=== PATIENT | female | born 1980 | race American Indian/Alaskan Native ===

== ENCOUNTER 2016-09-13 17:10 | Emergency (ER) | payer MEDICAID, MEDICARE ==
--- NOTE | 2016-09-13 18:12 | Emergency Department Report ---
Chief Complaint: Vaginal Bleeding Stated Complaint: /SPOTTING Time Seen by Provider: 09/13/16 18:05 - HPI History of Present Illness: Patient is a 36-year-old female who presents to the complaining of vaginal spotting and pelvic cramping times today. Patient states she took a test on Saturday and was positive at home. Patient states today she started to see some pink spotting pennies and low pelvic cramping. Patient states she is set up, and in get it checked out. Patient states cramping is resolved at the moment. Patient denies fevers/chills/nausea/vomiting/abdominal pain/shortness of breath /dizziness - ROS Review of Systems: As noted in HPI - Exam Vital Signs: Vital Signs 09/13/16 17:50 Temperature 98.7 F Pulse Rate 92 H Respiratory 16 Rate Blood Pressure 118/87 O2 Sat by Pulse 98 Oximetry Physical Exam: AGENERAL: Alert and oriented x3, no apparent distress, Normal Gait, atraumatic. LUNGS: Symetrical with respiration, No wheezing, no rales or crackles, CTAB. HEART: S1, S2 present, regular rate and rhythm without murmur, no rubs, no gallops. ABDOMEN: No organomegaly was noted,Positive bowel sounds, soft, and non- distended. . Nontender to palpation on all Quadrants, NO CVA tenderness. MSE screening note: Focused history and physical exam performed. Due to findings the following was ordered: ED Medical Decision Making - Medical Decision Making Protocol ordered. If normal ultrasound and lab results patient can be seen in fast track. ED Disposition for MSE Condition: Stable
[2016-09-13 18:38] LABS: Bilirubin,Urine NEG (Negative); Blood,Urine MOD (Negative); Ketones,Urine NEG (Negative); Leukocyte Esterase,Urine NEG (Negative); Mucus,Urine FEW /HPF; Nitrite,Urine NEG (Negative); Protein,Urine <15 mg/dL mg/dL (Negative); Urobilinogen,Urine < 2.0 mg/dL (<2.0); WBC,Urine < 1.0 /HPF (0.0-6.0)
[2016-09-13 18:48] LABS: Eosinophils % (Auto) 1.1 % (0.0-4.3); Hematocrit 40.2 % (30.3-42.9); Hemoglobin 13.4 gm/dl (10.1-14.3); Mean Corpuscular HGB Conc 33 % (30-34); Mean Corpuscular Hemoglobin 27 pg (28-32); Mean Corpuscular Volume 82 fl (79-97); Platelet Count 221 K/mm3 (140-440); Red Blood Count 4.93 M/mm3 (3.65-5.03); Red Cell Distribution Width 14.4 % (13.2-15.2); White Blood Count 7.2 K/mm3 (4.5-11.0)
--- NOTE | 2016-09-13 20:14 | Ultrasound Report ---
FINAL REPORT EXAM: US OB \T\lt; = 14 WEEKS FETUS HISTORY: spotting/cramping TECHNIQUE: Transabdominal and transvaginal sonography of the pelvis. PRIORS: None for this . FINDINGS: The uterus measures 12.4 x 5.6 x 8.3 cm, has heterogeneous echogenicity and multiple, small and hypoechoic fibroids. The endometrial stripe measures 22 mm in AP dimension. No intrauterine fluid collection or IUP identified. The right ovary measures 2.9 x 2.4 x 3.0 cm and is grossly unremarkable. The left ovary is not confidently identified by the train control technician. No adnexal masses, ring-like structures or significant free peritoneal fluid. IMPRESSION: 1. No IUP identified. Possibilities include early gestation, early failure, or ectopic . Correlation with serial beta-hCG levels and follow-up ultrasound may help in further evaluation. 2. Leiomyomatous change in the uterus. 3. Nonvisualization of the left ovary.
--- NOTE | 2016-09-13 20:15 | Ultrasound Report ---
FINAL REPORT EXAM: US OB TRANSVAGINAL HISTORY: spotting/cramping TECHNIQUE: Transabdominal and transvaginal sonography of the pelvis. PRIORS: None from this . FINDINGS: The uterus measures 12.4 x 5.6 x 8.3 cm, has heterogeneous echogenicity and multiple, small and hypoechoic fibroids. The endometrial stripe measures 22 mm in AP dimension. No intrauterine fluid collection or IUP identified. The right ovary measures 2.9 x 2.4 x 3.0 cm and is grossly unremarkable. The left ovary is not confidently identified by the soil field technician. No adnexal masses, ring-like structures or significant free peritoneal fluid. IMPRESSION: 1. No IUP identified. Possibilities include early gestation, early failure, or ectopic . Correlation with serial beta-hCG levels and follow-up ultrasound may help in further evaluation. 2. Leiomyomatous change in the uterus. 3. Nonvisualization of the left ovary.
--- NOTE | 2016-09-14 00:44 | Emergency Department Report ---
ED Female HPI - General Chief complaint: Vaginal Bleeding Stated complaint: /SPOTTING Time Seen by Provider: 09/13/16 18:05 Source: patient Mode of arrival: Ambulatory Limitations: No Limitations - History of Present Illness Initial comments: 36-year-old female presents to the hospital complaining of of vaginal bleeding. Patient is positive for recent 3 days LMP 08/13/2016. Patient had a positive test earlier in the week and started to developed spotting today. No pain reported. This is patient's third . She has a teenager and had a miscarriage (twins at 4 months) last year. She denies history of ectopic or abortions. She does not have a [employer] doctor - Related Data Previous Rx's Medication Instructions Recorded Last Taken Type Pnv95/Ferrous Fumarate/FA 1 each PO DAILY #30 tablet 09/14/16 Unknown Rx [Prenavite Tablet] metroNIDAZOLE [Flagyl] 500 mg PO Q12HR #14 tab 09/14/16 Unknown Rx Allergies Allergy/AdvReac Type Severity Reaction Status Date / Time aspirin Allergy Angioedema Verified 09/13/16 17:54 orange juice Allergy Angioedema Verified 09/13/16 17:54 ED Review of Systems ROS: Stated complaint: /SPOTTING Other details as noted in HPI Comment: All other systems reviewed and negative Other: Constitutional: No fevers chills Eyes: No eye pain visual changes ENT: No ear pain or throat pain Neck: Denies pain Respiratory: Denies cough wheezing shortness of breath Cardiovascular: Denies chest pain, palpitations, syncope GI: Denies abdominal pain, nausea, vomiting, diarrhea : Denies dysuria Musculoskeletal: Denies back pain Skin: Denies rash, lesions, erythema Neurologic: Denies headache, numbness, weakness Psychiatric: Denies suicidal ideation, hallucinations ED Past Medical Hx - Past Medical History Hx Hypertension: No Hx Liver Disease: Yes (liver transplant x 3 1982) Hx Renal Disease: (kidney stones) Hx Seizures: No Hx Asthma: No Additional medical history: liver transplant 1982 - Surgical History Additional Surgical History: csection. liver transplant - Social History Smoking Status: Never Smoker Substance Use Type: None - Medications Home Medications: Home Medications Medication Instructions Recorded Confirmed Last Taken Type Pnv95/Ferrous Fumarate/FA 1 each PO DAILY #30 tablet 09/14/16 Unknown Rx [Prenavite Tablet] metroNIDAZOLE [Flagyl] 500 mg PO Q12HR #14 tab 09/14/16 Unknown Rx ED Physical Exam - General Limitations: No Limitations - Other Other exam information: General: No limitations, patient is alert in no acute distress Head exam: Atraumatic, normocephalic Eyes exam: Normal appearance ENT: Moist mucous membrane, normal oropharynx Neck exam: Normal inspection, full range of motion Respiratory exam: Clear to auscultation bilateral, no wheezes, rales, crackles Cardiovascular: Normal rate and rhythm, normal heart sounds Abdomen: Soft, nondistended, and nontender, with normal bowel sounds, no rebound, or guarding : Scant blood in the vault, Cervix closed, no CMT or adnexal tenderness Extremity: Full range of motion normal inspection no deformity Back: Normal Inspection, full range of motion, no tenderness Neurologic: Alert, oriented x3, cranial nerves intact, no motor or sensory deficit Psychiatric: normal affect, normal mood Skin: Warm, dry, intact ED Course Vital Signs 09/13/16 17:50 Temperature 98.7 F Pulse Rate 92 H Respiratory 16 Rate Blood Pressure 118/87 O2 Sat by Pulse 98 Oximetry - Reevaluation(s) Reevaluation #1: 09/14/16 00:42 Patient stable in the ED - Consultations Consultation #1: 09/14/16 00:[address] Blanc materials and corrosion engineer physician for [employer]. Agrees with plan to have patient return to the ER with 2 days for repeat Quant is no IUP identified on ultrasound ED Medical Decision Making - Lab Data Result diagrams: 09/13/16 18:26 Lab Results 09/13/16 09/13/16 09/13/16 Range/Units 18:10 18:26 18:26 WBC 7.2 (4.5-11.0) K/mm3 RBC 4.93 (3.65-5.03) M/mm3 Hgb 13.4 (10.1-14.3) gm/dl Hct 40.2 (30.3-42.9) % MCV 82 (79-97) fl MCH 27 L (28-32) pg MCHC 33 (30-34) % RDW 14.4 (13.2-15.2) % Plt Count 221 (140-440) K/mm3 Lymph % (Auto) 25.1 (13.4-35.0) % [place] % (Auto) 6.0 (0.0-7.3) % Eos % (Auto) 1.1 (0.0-4.3) % Baso % (Auto) 1.0 (0.0-1.8) % Lymph # 1.8 (1.2-5.4) K/mm3 [place] # 0.4 (0.0-0.8) K/mm3 Eos # 0.1 (0.0-0.4) K/mm3 Baso # 0.1 (0.0-0.1) K/mm3 Seg Neutrophils % 66.8 (40.0-70.0) % Seg Neutrophils # 4.8 (1.8-7.7) K/mm3 HCG, Quant 2354 H (0-4) mIU/mL Urine Color Straw (Yellow) Urine Turbidity Clear (Clear) Urine pH 6.0 (5.0-7.0) Ur Specific [place] 1.005 (1.003-1.030) Urine Protein <15 mg/dl (Negative) mg/dL Urine Glucose (UA) Neg (Negative) mg/dL Urine Ketones Neg (Negative) mg/dL Urine Blood Mod (Negative) Urine Nitrite Neg (Negative) Urine Bilirubin Neg (Negative) Urine Urobilinogen < 2.0 (<2.0) mg/dL Ur Leukocyte Esterase Neg (Negative) Urine WBC (Auto) < 1.0 (0.0-6.0) /HPF Urine RBC (Auto) 0.0 (0.0-6.0) /HPF U Epithel Cells (Auto) 2.0 (0-13.0) /HPF Urine Mucus Few /HPF Blood Type Antibody Screen 09/13/16 Range/Units 18:35 WBC (4.5-11.0) K/mm3 RBC (3.65-5.03) M/mm3 Hgb (10.1-14.3) gm/dl Hct (30.3-42.9) % MCV (79-97) fl MCH (28-32) pg MCHC (30-34) % RDW (13.2-15.2) % Plt Count (140-440) K/mm3 Lymph % (Auto) (13.4-35.0) % [place] % (Auto) (0.0-7.3) % Eos % (Auto) (0.0-4.3) % Baso % (Auto) (0.0-1.8) % Lymph # (1.2-5.4) K/mm3 [place] # (0.0-0.8) K/mm3 Eos # (0.0-0.4) K/mm3 Baso # (0.0-0.1) K/mm3 Seg Neutrophils % (40.0-70.0) % Seg Neutrophils # (1.8-7.7) K/mm3 HCG, Quant (0-4) mIU/mL Urine Color (Yellow) Urine Turbidity (Clear) Urine pH (5.0-7.0) Ur Specific [place] (1.003-1.030) Urine Protein (Negative) mg/dL Urine Glucose (UA) (Negative) mg/dL Urine Ketones (Negative) mg/dL Urine Blood (Negative) Urine Nitrite (Negative) Urine Bilirubin (Negative) Urine Urobilinogen (<2.0) mg/dL Ur Leukocyte Esterase (Negative) Urine WBC (Auto) (0.0-6.0) /HPF Urine RBC (Auto) (0.0-6.0) /HPF U Epithel Cells (Auto) (0-13.0) /HPF Urine Mucus /HPF Blood Type O POSITIVE Antibody Screen Negative - Medical Decision Making Patient a HCG quantitative in the 1999 however, no IUP is identified on ultrasound. Patient may need to return in 2 days for repeat hCG testing. Case has been discussed with [employer]. Patient's blood type is O positive and she does not require RhoGAM. She is stable for follow-up at this time. Patient will be treated for bacterial vaginosis. - Differential Diagnosis ectopic , threatened miscarriage, miscarriage Critical Care Time: No Critical care attestation.: If time is entered above; I have spent that time in minutes in the direct care of this critically ill patient, excluding procedure time. ED Disposition Clinical Impression: Threatened miscarriage, Bacterial vaginosis Disposition: DISCHARGED TO HOME OR SELFCARE Is pt being admited?: No Does the pt Need Aspirin: No Condition: Stable Instructions: Threatened Miscarriage (ED), Bacterial Vaginosis (ED) Additional Instructions: Return in 2 days for repeat hCG quantitative testing since [employer] office will be closed at this time. Please return if symptoms worsen prior to your repeat visit recommendation. Your baby hormone beta hCG is 2354 today. Your gonorrhea and chlamydia tests are pending and take approximately 3-4 days result. You may obtain results in medical records with a photo ID. You may also obtain results through the follow-up doctor office via medical record request. Prescriptions: metroNIDAZOLE [Flagyl] 500 mg PO Q12HR #14 tab Pnv95/Ferrous Fumarate/FA [Prenavite Tablet] 1 each PO DAILY #30 tablet Referrals: JAYMIE ANDERS [Other] - 3-5 Days DANDRE BLANC MD [Staff Physician] - 2-3 Days Forms: STI Treatment and Prevention Time of Disposition: 02:05
[2016-09-14 02:27] VITALS: BP 121/85
== END 2016-09-14 02:25 | disposition home or self-care (01) ==
LOC: ED 17:10
DX: O20.0 Threatened abortion (principal); Z3A.00 Weeks of gestation of pregnancy not specified
CPT/HCPCS: 36415; 76801; 76817; 81001; 84702; 85025; 86850; 86900; 86901; 87210; 87591; 99284

== ENCOUNTER 2016-09-27 19:18 | Emergency (ER) | payer MEDICAID ==
[2016-09-27 20:57] LABS: Basophils % (Auto) 0.5 % (0.0-1.8); Eosinophils % (Auto) 1.5 % (0.0-4.3); Hematocrit 40.2 % (30.3-42.9); Hemoglobin 13.3 gm/dl (10.1-14.3); Mean Corpuscular HGB Conc 33 % (30-34); Mean Corpuscular Hemoglobin 28 pg (28-32); Mean Corpuscular Volume 84 fl (79-97); Platelet Count 190 K/mm3 (140-440); Red Blood Count 4.79 M/mm3 (3.65-5.03); Red Cell Distribution Width 14.4 % (13.2-15.2); White Blood Count 6.9 K/mm3 (4.5-11.0)
--- NOTE | 2016-09-27 21:43 | Emergency Department Report ---
ED HPI - General Chief complaint: Vaginal Bleeding Stated complaint: VAG BLEEDING Time Seen by Provider: 09/27/16 21:19 Source: patient Mode of arrival: Stretcher Limitations: No Limitations - History of Present Illness Initial comments: 36-year-old female and history of miscarriage last year presents to the hospital with complaints of vaginal bleeding and started at 7 PM. Patient noticed the blood on her tissue after urination. She has not required any pads and reports that the bleeding has improved it is mild spotting at this time. No pain reported. Patient was seen by me on September 14 for pelvic pain or vaginal bleeding. No IUP identified that time with a hCG quantitative in the . Patient was instructed to return in 2 days for repeat laboratory testing however , she has not followed up since her last ER visit. LMP 08/13/2016 therefore she is 7 wks 0 days by dates. - Related Data Previous Rx's Medication Instructions Recorded Last Taken Type Vit W-Ca,Fe,FA(<1 mg) 1 each PO DAILY #30 tablet 09/28/16 Unknown Rx [ Vitamins] Allergies Allergy/AdvReac Type Severity Reaction Status Date / Time aspirin Allergy Angioedema Verified 09/13/16 17:54 orange juice Allergy Angioedema Verified 09/13/16 17:54 ED Review of Systems ROS: Stated complaint: VAG BLEEDING Other details as noted in HPI Comment: All other systems reviewed and negative Other: Constitutional: No fevers chills Eyes: No eye pain visual changes or discharge ENT: No ear pain or throat pain Neck: Denies pain Respiratory: Denies cough wheezing shortness of breath Cardiovascular: Denies chest pain, palpitations, syncope GI: Denies abdominal pain : Denies dysuria Musculoskeletal: Denies back pain Skin: Denies rash, lesions, erythema Neurologic: Denies headache, numbness, weakness ED Past Medical Hx - Past Medical History Hx Hypertension: No Hx Liver Disease: Yes (liver transplant x 3 1982) Hx Renal Disease: (kidney stones) Hx Seizures: No Hx Asthma: No Additional medical history: liver transplant 1982 - Surgical History Additional Surgical History: csection. liver transplant - Social History Smoking Status: Never Smoker Substance Use Type: None - Medications Home Medications: Home Medications Medication Instructions Recorded Confirmed Last Taken Type Vit W-Ca,Fe,FA(<1 mg) 1 each PO DAILY #30 tablet 09/28/16 Unknown Rx [ Vitamins] ED Physical Exam - General Limitations: No Limitations - Other Other exam information: General: No limitations, patient is alert in no acute distress Head exam: Atraumatic, normocephalic Eyes exam: Normal appearance ENT: Moist mucous membrane, normal oropharynx Neck exam: Normal inspection, full range of motion Respiratory exam: Clear to auscultation bilateral, no wheezes, rales, crackles Cardiovascular: Normal rate and rhythm, normal heart sounds Abdomen: Soft, nondistended, and nontender, with normal bowel sounds, no rebound, or guarding Extremity: Full range of motion normal inspection no deformity Back: Normal Inspection, full range of motion, no tenderness Neurologic: Alert, oriented x3, cranial nerves intact, no motor or sensory deficit Psychiatric: normal affect, normal mood Skin: Warm, dry, intact ED Course Vital Signs 09/27/16 09/27/16 09/27/16 20:11 21:48 22:08 Temperature 98.2 F 98.6 F Pulse Rate 90 99 H Respiratory 18 20 Rate Blood Pressure 116/74 96/51 Blood Pressure 116/74 [Left] O2 Sat by Pulse 100 99 Oximetry ED Medical Decision Making - Lab Data Result diagrams: 09/27/16 20:40 Lab Results 09/27/16 09/27/16 09/27/16 Range/Units 20:40 20:40 20:40 WBC 6.9 (4.5-11.0) K/mm3 RBC 4.79 (3.65-5.03) M/mm3 Hgb 13.3 (10.1-14.3) gm/dl Hct 40.2 (30.3-42.9) % MCV 84 (79-97) fl MCH 28 (28-32) pg MCHC 33 (30-34) % RDW 14.4 (13.2-15.2) % Plt Count 190 (140-440) K/mm3 Lymph % (Auto) 26.1 (13.4-35.0) % [place] % (Auto) 6.2 (0.0-7.3) % Eos % (Auto) 1.5 (0.0-4.3) % Baso % (Auto) 0.5 (0.0-1.8) % Lymph # 1.8 (1.2-5.4) K/mm3 [place] # 0.4 (0.0-0.8) K/mm3 Eos # 0.1 (0.0-0.4) K/mm3 Baso # 0.0 (0.0-0.1) K/mm3 Seg Neutrophils % 65.7 (40.0-70.0) % Seg Neutrophils # 4.5 (1.8-7.7) K/mm3 HCG, Quant 00126 H (0-4) mIU/mL Urine Color (Yellow) Urine Turbidity (Clear) Urine pH (5.0-7.0) Ur Specific [place] (1.003-1.030) Urine Protein (Negative) mg/dL Urine Glucose (UA) (Negative) mg/dL Urine Ketones (Negative) mg/dL Urine Blood (Negative) Urine Nitrite (Negative) Urine Bilirubin (Negative) Urine Urobilinogen (<2.0) mg/dL Ur Leukocyte Esterase (Negative) Urine WBC (Auto) (0.0-6.0) /HPF Urine RBC (Auto) (0.0-6.0) /HPF U Epithel Cells (Auto) (0-13.0) /HPF Urine Mucus /HPF Blood Type O POSITIVE Antibody Screen Negative 09/27/16 Range/Units 22:29 WBC (4.5-11.0) K/mm3 RBC (3.65-5.03) M/mm3 Hgb (10.1-14.3) gm/dl Hct (30.3-42.9) % MCV (79-97) fl MCH (28-32) pg MCHC (30-34) % RDW (13.2-15.2) % Plt Count (140-440) K/mm3 Lymph % (Auto) (13.4-35.0) % [place] % (Auto) (0.0-7.3) % Eos % (Auto) (0.0-4.3) % Baso % (Auto) (0.0-1.8) % Lymph # (1.2-5.4) K/mm3 [place] # (0.0-0.8) K/mm3 Eos # (0.0-0.4) K/mm3 Baso # (0.0-0.1) K/mm3 Seg Neutrophils % (40.0-70.0) % Seg Neutrophils # (1.8-7.7) K/mm3 HCG, Quant (0-4) mIU/mL Urine Color Yellow (Yellow) Urine Turbidity Clear (Clear) Urine pH 6.0 (5.0-7.0) Ur Specific [place] 1.014 (1.003-1.030) Urine Protein <15 mg/dl (Negative) mg/dL Urine Glucose (UA) Neg (Negative) mg/dL Urine Ketones Neg (Negative) mg/dL Urine Blood Lg (Negative) Urine Nitrite Neg (Negative) Urine Bilirubin Neg (Negative) Urine Urobilinogen < 2.0 (<2.0) mg/dL Ur Leukocyte Esterase Neg (Negative) Urine WBC (Auto) 7.0 H (0.0-6.0) /HPF Urine RBC (Auto) 1.0 (0.0-6.0) /HPF U Epithel Cells (Auto) 4.0 (0-13.0) /HPF Urine Mucus Few /HPF Blood Type Antibody Screen - Radiology Data Radiology results: report reviewed OB/transvaginal ultrasound: Single live IUP 6 weeks in 2 days. Uterine masses suggesting fibroids 3.5 cm. - Medical Decision Making Plan to discharge patient home. Ultrasound confirms IUP. She does not require RhoGAM. 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 ED Disposition Clinical Impression: Threatened , 6 weeks gestation of Disposition: DISCHARGED TO HOME OR SELFCARE Is pt being admited?: No Does the pt Need Aspirin: No Condition: Stable Instructions: Threatened Miscarriage (ED) Additional Instructions: Take the medication as prescribed. Follow up with PROTECTION MANAGER doctor provided with the PROTECTION MANAGER doctor of your choice. Recommend pelvic rest/no sex until cleared by your PROTECTION MANAGER doctor Prescriptions: Vit W-Ca,Fe,FA(<1 mg) [ Vitamins] 1 each PO DAILY #30 tablet Referrals: [facility] [Provider Group] - 3-5 Days Time of Disposition: 00:30
[2016-09-27 21:54] VITALS: BP 96/51
[2016-09-27 23:27] LABS: Bilirubin,Urine NEG (Negative); Blood,Urine LG (Negative); Ketones,Urine NEG (Negative); Leukocyte Esterase,Urine NEG (Negative); Mucus,Urine FEW /HPF; Nitrite,Urine NEG (Negative); Protein,Urine <15 mg/dL mg/dL (Negative); Urobilinogen,Urine < 2.0 mg/dL (<2.0)
--- NOTE | 2016-09-28 00:19 | Ultrasound Report ---
FINAL REPORT PROCEDURE: US OB TRANSVAGINAL TECHNIQUE: Real-time transvaginal sonography of the uterus, placenta, amniotic fluid, adnexa, and fetus was performed with image documentation. Measurements were obtained to determine age/size. M-mode Doppler was used to document heartbeat. CPT 20458 HISTORY: Vaginal bleeding/ COMPARISON: No prior studies are available for comparison. FINDINGS: CRL: 5.6mm, which corresponds to a gestational age of: 6weeks, 2 days. Yolk Sac: Normal. Embryonic Cardiac Activity: 131 beats per minute Gestational Sac: Normal. Right Ovary: Normal. Left Ovary: Normal. Estimated delivery date: 05/21/2017 Comment: Complete anatomic survey at 18-20 weeks suggested. There are uterine masses measuring up to 3.5 centimeters suggesting fibroids. IMPRESSION: 1. Single living intrauterine gestation at approximately 6 weeks and 2 days 2. EDC by US 05/21/2017.
--- NOTE | 2016-09-28 00:20 | Ultrasound Report ---
FINAL REPORT PROCEDURE: US OB transabdominal TECHNIQUE: Real-time transabdominal sonography of the uterus, placenta, amniotic fluid, adnexa, and fetus was performed with image documentation. Measurements were obtained to determine age/size. M-mode Doppler was used to document heartbeat. HISTORY: Vaginal bleeding/ COMPARISON: No prior studies are available for comparison. FINDINGS: CRL: 5.6mm, which corresponds to a gestational age of: 6weeks, 2 days. Yolk Sac: Normal. Embryonic Cardiac Activity: 131 beats per minute Gestational Sac: Normal. Right Ovary: Normal. Left Ovary: Normal. Estimated delivery date: 05/21/2017 Comment: Complete anatomic survey at 18-20 weeks suggested. There are uterine masses measuring up to 3.5 centimeters suggesting fibroids. IMPRESSION: 1. Single living intrauterine gestation at approximately 6 weeks and 2 days 2. EDC by US 05/21/2017.
== END 2016-09-28 00:50 | disposition home or self-care (01) ==
LOC: ED 19:18
DX: O20.0 Threatened abortion (principal); Z3A.01 Less than 8 weeks gestation of pregnancy; Z79.82 Long term (current) use of aspirin; Z91.018 Allergy to other foods; Z94.4 Liver transplant status
CPT/HCPCS: 36415; 76801; 76817; 81001; 84702; 85025; 86850; 86900; 86901

== ENCOUNTER 2017-01-14 18:16 | Outpatient (CLI) | payer MEDICAID ==
[2017-01-14] MEDS ORDERED: LACTATED RINGERS 500 ML IV ONE (19:39)
[2017-01-14 21:52] VITALS: BP 98/65
== END 2017-01-14 22:22 | disposition home or self-care (01) ==
LOC: TRG 18:16
PROVIDERS: ATTEND Obstetrics & Gynecology
DX: O09.523 Supervision of elderly multigravida, third trimester (principal); O47.02 False labor before 37 completed weeks of gestation, second trimester; Z3A.22 22 weeks gestation of pregnancy
CPT/HCPCS: 59025; J7120

== ENCOUNTER 2017-05-02 06:04 | Inpatient (IN) | payer MEDICAID ==
[~2017-05-02 06:04] MED LIST: ANCEF/STERILE WATER 2 GM/20 ML 2 GM/20 ML SYRINGE IV ONE; BICITRA ONE; LACTATED RINGERS 1,000 ML ONE; MORPHINE ONE; NACL 0.9% IR ONE; NEO SYNEPHRINE/NS Syringe(OR USE) IV ONE; PEPCID IV ONE; PITOCin/NS 20 UNIT/1000ML DRIP 20,000 MILLIUNITS/1,000 ML BAG IV ONE; REGLAN ONE; WATER FOR IRRIG STERILE IR ONE; ePHEDrine SULFATE ONE
[2017-05-02] MEDS ORDERED: VERSED ONE (06:36)
[2017-05-02] MEDS ORDERED: PEPCID IV NR (07:30)
[2017-05-02] MEDS ORDERED: BICITRA PO NR (07:30)
[2017-05-02] MEDS ORDERED: ANCEF/STERILE WATER 2 GM/20 ML 2 GM/20 ML SYRINGE IV NR (07:30)
[2017-05-02] MEDS ORDERED: REGLAN IV NR (07:30)
--- NOTE | 2017-05-02 07:33 | History and Physical Report ---
History of Present Illness Date of examination: 05/02/17 Date of admission: 05/02/17 06:05 Chief complaint: my water broke History of present illness: Pt presents with c/o SROM of clear fluid @ 0200. Pt also with cerclage in place and noted buy triage nurse to be 2cx dilated and cerclage was not palpated. Pt is GBS positive. Decision made pt proceed with repeat c/s. Menstrual History Regularity: regular Menses every: 28 days Duration: 5 LMP: 08/13/2016 LMP reliability: definite LMP character: normal test type: urine test Date: 09/13/2016 BC at conception: none Planned ? yes EDC Calculations LMP: 05/20/2017 EDC Confirmation: 05/20/2017 Gestational Age: 8 4/7 weeks Past History : 3 Term Births: 1 Premature Births: 0 Living Children: 1 Para: 1 Mult. Births: 0 Prev : 1 Aborta: 1 Elect. Ab: 0 Spont. Ab: 1 Ectopics: 0 # 1 Delivery date: 2002 Weeks Gestation: term labor: no Delivery type: Delivery location: [facility] Sex: Female weight: 6#2 Comments: c/s for distress # 2 Delivery date: 08/2015 Weeks Gestation: 16 weeks Delivery type: SAB Delivery location: home/[facility] Sex: Male/female Comments: Twins Past Medical History: 1983 - 3 liver transplants per patient because 'my bowel movements weren't coming out". Patient is not currently on any antirejection medication. 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 of genital herpes: no Partner hx. of genital herpes: no Rash, Viral, or Febrile illness since last LMP? no Varicella/Chicken Pox Status: Previous Disease TB Risk: no Genetic History ADVANCED MATERNAL AGE Congenital Heart Defect: Mom: no Dad: no Ulises Disease: Mom: no Dad: no Thalassemia Mom: no Dad: no Neural Tube Defect Mom: no Dad: no Down's Syndrome Mom: no Dad: no Rahat-Sachs Mom: no Dad: no Sickle Cell Disease/Trait Mom: no Dad: no Hemophilia Mom: no Dad: no Muscular Dystrophy Mom: no Dad: no Cystic Fibrosis Mom: no Dad: no Glynn Chorea Mom: no Dad: no Mental Retardation Mom: no Dad: no Fragile X Mom: no Dad: no Other Genetic/Chromosomal Disorder Mom: no Dad: no Child w/other defect Mom: no Dad: no Enviromental Exposures Xray Exposure: no Medication, drug, or alcohol use since LMP: no Chemical/Other Exposure: no Exposure to Cat Liter: yes Hx of Parvovirus (Fifth Disease): no Occupational Exposure to Children: none Comments: will drawn toco with IOB - instructed not to change cat litter Active Medications (reviewed today): None Current Allergies: * ASPIRIN (Critical) Past History Past Medical History: other (liver transplants as a child) Past Surgical History: section, other (liver transplants as a child not issues since being an adult) Social history: no significant social history, single - Obstetrical History : 3 Medications and Allergies Allergies Allergy/AdvReac Type Severity Reaction Status Date / Time aspirin Allergy Angioedema Verified 09/13/16 17:54 orange juice Allergy Angioedema Verified 09/13/16 17:54 Home Medications Medication Instructions Recorded Confirmed Last Taken Type Vit Calc,Iron,Folic 1 each PO DAILY #30 tablet 09/28/16 05/02/17 2 Days Ago Rx [ Vitamins] ~04/30/17 Docusate Sodium [Colace] 100 mg PO BID PRN #60 capsule 05/02/17 Unknown Rx Ferrous Sulfate [Feosol 325 MG tab] 325 mg PO QDAY #30 tablet 05/02/17 Unknown Rx Ibuprofen [Motrin 800 MG tab] 800 mg PO Q8HR PRN #30 tablet 05/02/17 Unknown Rx oxyCODONE /ACETAMINOPHEN [Percocet 1 tab PO Q4HR #30 tab 05/02/17 Unknown Rx 5/325] Active Meds: Active Medications Citric Acid/Sodium Citrate (Bicitra) 30 ml PO ONCE ONE Stop: 05/02/17 07:27 Famotidine (Pepcid) 20 mg IV ONCE ONE Stop: 05/02/17 07:27 Cefazolin Sodium (Ancef/Sterile Water 2 Gm/20 Ml) 2 gm in 20 mls @ 80 mls/hr IV PREOP NR PRN Reason: Protocol Lactated Ringer's (Lactated Ringers) 1,000 mls @ 2,250 mls/hr IV PREOP SHELBY Stop: 05/03/17 08:27 Oxytocin/Sodium Chloride (Pitocin/Ns 20 Unit/1000ml Drip) 20 units in 1,000 mls @ 0 mls/hr IV TITR SHELBY PRN Reason: As Directed Metoclopramide HCl (Reglan) 10 mg IV ONCE ONE Stop: 05/02/17 07:27 - Physical Exam Cardiovascular: Normal S1, Normal S2 Lungs: Positive: Clear to auscultation, Normal air movement Abdomen: Positive: normal appearance, soft, normal bowel sounds. Negative: distention, tenderness, guarding Genitourinary (Female): Positive: normal external genitalia, normal perenium - Obstetrical FHR: category 2 Results Result Diagrams: 05/02/17 20:12 All other labs normal. Assessment and Plan - Patient Problems (1) 37 weeks gestation of Current Visit: Yes Status: Resolved (2) PROM (premature rupture of membranes) Current Visit: Yes Status: Ruled-out (3) Previous delivery affecting Current Visit: Yes Status: Acute Plan to address problem: -admit and prepare for c/s (4) Cervical incompetence affecting management of mother, antepartum Current Visit: Yes Status: Acute Plan to address problem: -cerclage in place will remove after c/s completed
--- NOTE | 2017-05-02 07:34 | Operative Report ---
Operative Report Operative Report: Date of procedure: 05/02/2017 Pre-operative diagnosis: 37 weeks gestation Premature rupture of membranes Previous section Post-operative diagnosis: Same was transverse presentation back down Procedure name(s): Repeat classical section via Pfannenstiel skin incision breech delivery Surgeon: Dr. Manning Laborer Cement Gun Placing: GEOFF Anesthesia: EBL: 800 mL Urine output: 100 mL of clear urine at the end of procedure Fluids: 1500 mL Findings: Liveborn female weight 6 lbs. 5 oz. Apgars of 7 and 8 at one and 5 minutes Adhesions of the bowel to the left uterine fundus Uterine fibroids Indications: Patient presented to triage with grossly ruptured membranes. Patient was also noted to be approximately 2 cm dilated with cerclage in place. Decision was made at this time to proceed with repeat section. All consents were signed and placed on the chart and all questions were addressed and answered. Procedure: Patient was taking to the operating room. Patient was then prepped and draped in sterile fashion after anesthesia was found to be adequate. A low transverse skin incision was made with the scalpel through previous incisional scar and carried down to the underlying layer of fascia with the Bovie. The fascia was then incised in the midline and this incision was extended bilaterally with the Bovie. The superior aspect of the fascia was grasped with Gregorio clamps tented upward and dissected off of the anterior rectus muscles with the scalpel. In similar fashion the inferior aspect of the fascia was grasped with Gregorio clamps tented upward and dissected off of the anterior rectus muscles. The rectus muscles were then sharply divided in the midline. The peritoneum was identified and entered into sharply. The bladder blade was placed. The Jaime retractor was placed. Examining of the uterus prior to uterine incision noted transverse presentation. Decision was made at this time to make a low vertical uterine incision with the scalpel and extended superiorly with the bandage scissors. Fore bag still present and was ruptured with clear fluid noted. If it was delivered via normal breech extraction without difficulty. The umbilical cord was clamped x2. The cord was cut. The was then placed in sterile bassinet. The cord blood was collected. The placenta was manually extracted in its entirety. The uterus was exteriorized and cleared of all clots and debris. The uterine incision was closed using 0 Vicryl in a running locking fashion. A second layer was created using 0 Vicryl in interrupted [id number] sutures. Interceed was placed along the uterine incision. The uterus was returned to the abdomen. The gutters were also irrigated. The anterior rectus muscles were reapproximated using 3-0 Vicryl. The anterior rectus fascia was reapproximated using 0 Vicryl in a running fashion. The subcuticular fat was reapproximated using 2-0 Vicryl in a running fashion. The skin was reapproximated with 4-0 Monocryl in a subcuticular stitch. The patient tolerated the procedure well. Sponge lap and needle counts were all correct x3. Patient was taken to the recovery room awake and in stable condition.
[2017-05-02] MEDS ORDERED: LANSINOH TP PRN (08:00)
[2017-05-02] MEDS ORDERED: ZOFRAN IV PRN (08:00)
[2017-05-02] MEDS ORDERED: PITOCin/NS 20 UNIT/1000ML DRIP 20 UNITS/1,000 ML BAG IV SCH ×2 (08:00)
[2017-05-02] MEDS ORDERED: TUCKS PAD TP PRN (08:00)
[2017-05-02] MEDS ORDERED: MYLICON PO PRN (08:00)
[2017-05-02] MEDS ORDERED: SODIUM CHLORIDE FLUSH SYRINGE 10 ML IV PRN (08:00)
[2017-05-02] MEDS ORDERED: D5LR 1,000 ML IV SCH (08:00)
[2017-05-02] MEDS ORDERED: LACTATED RINGERS 1,000 ML IV SCH (08:00)
[2017-05-02] MEDS: TORADOL IV PRN ×2 (08:47→14:58)
[2017-05-02] MEDS ORDERED: NARCAN 0.4 MG/1 ML IV PRN (09:00)
[2017-05-02 11:52] LABS: Hemoglobin 11.8 gm/dl (10.1-14.3); Mean Corpuscular HGB Conc 33 % (30-34); Mean Corpuscular Hemoglobin 26 pg (28-32); Mean Corpuscular Volume 80 fl (79-97); Red Blood Count 4.48 M/mm3 (3.65-5.03); White Blood Count 6.8 K/mm3 (4.5-11.0)
[2017-05-02 11:53] LABS: Basophils % (Auto) 0.7 % (0.0-1.8); Eosinophils % (Auto) 1.9 % (0.0-4.3); Platelet Count 205 K/mm3 (140-440); Red Cell Distribution Width 16.4 % (13.2-15.2)
[2017-05-02] MEDS: NORCO 5/325 PO PRN (13:09)
[2017-05-02] MEDS ORDERED: ANCEF/NS 1 GM/50 ML 1 GM/50 ML BAG IV SCH (13:30)
[2017-05-02] MEDS: FEOSOL PO SCH (15:07)
[2017-05-02 20:49] LABS: Hematocrit 31.6 % (30.3-42.9); Hemoglobin 10.6 gm/dl (10.1-14.3)
[2017-05-02] MEDS ORDERED: ANCEF/NS 1 GM/50 ML 1 GM/50 ML BAG IV ONE (21:30)
[2017-05-03] MEDS: NORCO 5/325 PO PRN ×3 (00:14→17:30)
--- NOTE | 2017-05-03 08:32 | Progress Note ---
Assessment and Plan - Patient Problems (1) 37 weeks gestation of Current Visit: Yes Status: Resolved (2) PROM (premature rupture of membranes) Current Visit: Yes Status: Ruled-out (3) Previous delivery affecting Current Visit: Yes Status: Acute (4) Cervical incompetence affecting management of mother, antepartum Current Visit: Yes Status: Acute (5) Delivered by section Current Visit: Yes Status: Acute Plan to address problem: -routine postop care/pp care -ambulation encouraged -remove dressing this am -d/c home in the am if AFVSS Subjective - Subjective Date of service: 05/03/17 Principal diagnosis: POD #1 s/p RCCS Interval history: Pt doing well. Pain is well controlled. Ambulation was encouraged today. Patient reports: appetite normal, voiding normally, pain well controlled, ambulating normally, no nauseated Hillman: doing well Objective - Vital Signs Latest vital signs: Vital Signs Temp Pulse Resp BP Pulse Ox 05/03/17 08:00 99.2 F 117 H 18 96/57 95 05/03/17 06:18 18 05/03/17 05:39 16 05/03/17 00:14 20 05/03/17 00:00 98.6 F 72 18 113/75 05/02/17 20:00 98.6 F 72 18 102/71 05/02/17 16:15 98.8 F 101 H 18 116/78 05/02/17 13:20 98.2 F 90 18 100/62 05/02/17 09:10 97.6 F 95 H 18 111/54 05/02/17 08:33 96.3 F L Intake and Output 05/02/17 05/03/17 05/03/17 22:59 06:59 14:59 Intake Total 120 300 Output Total 600 800 Balance -480 -500 Intake: Oral 120 Intake, Free Water 300 Output: Urine 600 800 Indwelling Catheter 600 Void 800 Other: Total, Intake Amount 120 Total, Output Amount 400 800 # Voids Void 1 - Exam Lungs: Present: Normal air movement Abdomen: Present: normal appearance, soft, normal bowel sounds. Absent: distention, tenderness, guarding Uterus: Present: normal, firm, fundal height below umbilicus. Absent: bogginess , tenderness Extremities: Present: normal. Absent: tenderness, edema Deep Tendon Reflex Grade: Normal +2 Incision: Present: normal, dry, intact, dressed - Labs Labs: Abnormal lab results 05/02/17 Range/Units 03:45 MCH 26 L (28-32) pg RDW 16.4 H (13.2-15.2) % White % (Auto) 8.5 H (0.0-7.3) %
[2017-05-03] MEDS: MOTRIN PO PRN (09:21)
[2017-05-03] MEDS: FEOSOL PO SCH (09:22)
[2017-05-04] MEDS: MOTRIN PO PRN ×2 (00:28→08:29)
[2017-05-04] MEDS: NORCO 5/325 PO PRN ×2 (01:41→06:39)
--- NOTE | 2017-05-04 07:36 | Discharge Summary ---
Providers - Providers Date of Admission: 05/02/17 06:05 Date of discharge: 05/04/17 (pt agrees with d/c ) Attending physician: CHANTE BELCHER Primary care physician: CHANTE BELCHER Hospitalization Reason for admission: rupture of membranes Delivery: Procedure: vertical (classical repeat) Episiotomy: none Laceration: none Incision: normal, dry, intact Other procedures: none complications: none Discharge diagnosis: IUP at term delivered [place] baby: female Hospital course: uncomplicated repeat section with cerclage removal Pt w/o complaint VSS FF below umb Lochia scant Incision D&I H&H stable Pt is asymptomatic anemia Doing well s/p section P: d/c today with instructions RTO 1 week postop visit RX provided @ d/c Declines BC @ this time. Condition at discharge: Good Disposition: DC-01 TO HOME OR SELFCARE - Discharge Diagnoses (1) Delivered by section Status: Acute Comment: rto 1 week postop visit Plan - Discharge Medications Prescriptions: Docusate Sodium [Colace] 100 mg PO BID PRN #60 capsule PRN Reason: Constipation Ferrous Sulfate [Feosol 325 MG tab] 325 mg PO QDAY #30 tablet Ibuprofen [Motrin 800 MG tab] 800 mg PO Q8HR PRN #30 tablet PRN Reason: Pain oxyCODONE /ACETAMINOPHEN [Percocet 5/325] 1 tab PO Q4HR #30 tab - Provider Discharge Summary Activity: routine, no sex for 6 weeks, no heavy lifting 4 weeks, no strenuous exercise Diet: routine Instructions: routine Additional instructions: [] Smoking cessation referral if applicable(refer to patient education folder for contact #) [] Refer to [facility] Booklet Call your doctor immediately for: * Fever > 100.5 * Heavy vaginal bleeding ( >1 pad per hour) * Severe persistent headache * Shortness of breath * Reddened, hot, painful area to leg or breast * Drainage or odor from incision. * Keep incision clean and dry at all times and follow doctor's instructions regarding bathing/showering - Follow up plan Follow up: CHANTE BELCHER MD [Primary Care Provider] - 7 Days (Congratulations! Happy Thanksgiving! Please call [phone] to schedule your postoperative visit in 1 week. Take medications as prescribed. Call with any concerns.)
[2017-05-04] MEDS: FEOSOL PO SCH (08:28)
[2017-05-04 08:46] VITALS: BP 97/51
== END 2017-05-04 13:20 | disposition home or self-care (01) | DRG 765 ==
LOC: TRG 06:04 → APU 06:05 → OB 09:01
PROVIDERS: ADMIT Obstetrics & Gynecology; ATTEND Obstetrics & Gynecology
PROC: 10D00Z0 Extraction of Products of Conception, High, Open Approach (ICD-10-PCS; principal; 2017-05-02)
PROC: 0UCC7ZZ Extirpation of Matter from Cervix, Via Natural or Artificial Opening (ICD-10-PCS; 2017-05-02)
DX: O34.212 Maternal care for vertical scar from previous cesarean delivery (principal); O34.33 Maternal care for cervical incompetence, third trimester; Z37.0 Single live birth; Z3A.37 37 weeks gestation of pregnancy; O99.824 Streptococcus B carrier state complicating childbirth; Z88.6 Allergy status to analgesic agent; Z91.018 Allergy to other foods; O32.1XX0 Maternal care for breech presentation, not applicable or unspecified; O34.13 Maternal care for benign tumor of corpus uteri, third trimester; D25.9 Leiomyoma of uterus, unspecified
CPT/HCPCS: 36415; 85014; 85018; 85025; 86592; 86850; 86900; 86901; 88307; 99211; G0463; J0690; J1885; J2250; J2270; J2370; J2590; J2765; J7120

== ENCOUNTER 2017-07-06 22:25 | Emergency (ER) | payer MEDICAID ==
[2017-07-06 23:13] VITALS: BP 114/72
[2017-07-07] MEDS ORDERED: TORADOL IM ONE (02:05)
[2017-07-07] MEDS ORDERED: ZOFRAN ODT PO ONE (02:05)
--- NOTE | 2017-07-07 02:13 | Emergency Department Report ---
ED Headache HPI - General Chief Complaint: Headache Stated Complaint: HEADACHE Time Seen by Provider: 07/07/17 01:49 Source: patient Exam Limitations: no limitations - History of Present Illness Initial Comments: This is a 36 y.o. female presents with headache for 3 days. Patient reports losing her balance as she walked from the restroom and hit her head on the dresser. States the back of her head and the front of head on both sides hurt. She denies LOC. States pain is 10/10 and constant. She have not taken anything, she is afraid because she is breast feeding. Timing/Duration: constant (3 days) Quality: moderate, constant, throbbing Head Injury Location: frontal, occipital Recent Head Trauma: head trauma > 24 hrs ago (hit head on dresser 3 nights ago) Associated Symptoms: denies symptoms. denies: confusion, fatigue, facial pain, fever/chills, flushing, loss of consciousness, nausea/vomiting, nasal congestion , nasal drainage, numbness in legs/feet, rash, seizures, sinus infection, stiff neck, vision changes, weakness Allergies/Adverse Reactions: Allergies aspirin Allergy (Verified 09/13/16 17:54) Angioedema orange juice Allergy (Verified 09/13/16 17:54) Angioedema Home Medications: Ambulatory Orders Vit Calc,Iron,Folic [ Vitamins] 1 each PO DAILY #30 tablet Docusate Sodium [Colace] 100 mg PO BID PRN #60 capsule 05/02/17 Ferrous Sulfate [Feosol 325 MG tab] 325 mg PO QDAY #30 tablet 05/02/17 Ibuprofen [Motrin 800 MG tab] 800 mg PO Q8HR PRN #30 tablet 05/02/17 oxyCODONE /ACETAMINOPHEN [Percocet 5/325] 1 tab PO Q4HR #30 tab 05/02/17 ED Review of Systems ROS: Stated complaint: HEADACHE Other details as noted in HPI Constitutional: denies: chills, fever Respiratory: denies: cough, shortness of breath, wheezing Cardiovascular: denies: chest pain, palpitations Gastrointestinal: denies: abdominal pain, nausea, diarrhea Neurological: headache (denies aura). denies: weakness, numbness, paresthesias , confusion, abnormal gait, vertigo ED Past Medical Hx - Past Medical History Previous Medical History?: Yes Hx Hypertension: No Hx Congestive Heart Failure: No Hx Diabetes: No Hx Deep Vein Thrombosis: No Hx Liver Disease: Yes (liver transplant x 3 1982) Hx Renal Disease: No Hx Sickle Cell Disease: No Hx Seizures: No Hx Asthma: No Hx COPD: No Hx HIV: No Additional medical history: liver transplant 1982 - Surgical History Past Surgical History?: Yes Additional Surgical History: csection. liver transplant - Social History Smoking Status: Never Smoker Substance Use Type: None - Medications Home Medications: Home Medications Medication Instructions Recorded Confirmed Last Taken Type Vit Calc,Iron,Folic 1 each PO DAILY #30 tablet 09/28/16 05/02/17 2 Days Ago Rx [ Vitamins] ~04/30/17 Docusate Sodium [Colace] 100 mg PO BID PRN #60 capsule 05/02/17 Unknown Rx Ferrous Sulfate [Feosol 325 MG tab] 325 mg PO QDAY #30 tablet 05/02/17 Unknown Rx Ibuprofen [Motrin 800 MG tab] 800 mg PO Q8HR PRN #30 tablet 05/02/17 Unknown Rx oxyCODONE /ACETAMINOPHEN [Percocet 1 tab PO Q4HR #30 tab 05/02/17 Unknown Rx 5/325] ED Physical Exam - General Limitations: No Limitations General appearance: alert, in no apparent distress - Respiratory Respiratory exam: Present: normal lung sounds bilaterally. Absent: respiratory distress - Cardiovascular Cardiovascular Exam: Present: regular rate, normal rhythm. Absent: systolic murmur, diastolic murmur, rubs, gallop - GI/Abdominal GI/Abdominal exam: Present: soft, normal bowel sounds - Neurological Exam Neurological exam: Present: alert, oriented X3, CN II-XII intact, normal gait ED Course Vital Signs 07/06/17 23:09 Temperature 98.3 F Pulse Rate 88 Respiratory 17 Rate Blood Pressure 114/72 O2 Sat by Pulse 98 Oximetry ED Medical Decision Making - Radiology Data Radiology results: image reviewed CT of head IMPRESSION: Within normal limits. - Medical Decision Making This is a 36 y.o. female presents with migraine headache for 3 days. Patient reports losing balance while walking to restroom and head head on the side of dresser. Denies LOC, visual changes, swelling, or discoloration. CT of head IMPRESSION: Within normal limits. Patient eloped prior to medical decision. Critical care attestation.: If time is entered above; I have spent that time in minutes in the direct care of this critically ill patient, excluding procedure time. ED Disposition Clinical Impression: Left against medical advice Disposition: ELOPED Is pt being admited?: No Condition: Stable Referrals: HARRY ONOFRE FNP [Primary Care Provider] - 3-5 Days
--- NOTE | 2017-07-07 03:01 | Cat Scan Report ---
FINAL REPORT EXAM: CT HEAD/BRAIN WO CON HISTORY: migraine from hitting head on dresser TECHNIQUE: Routine axial imaging was obtained of the brain without IV contrast. FINDINGS: The ventricular system is appropriate in size and is symmetric. There is no evidence of acute stroke or hemorrhage. The basal cisterns appear normal. The visualized sinuses are clear. The mastoid air cells are well pneumatized. The calvarium appears normal. IMPRESSION: Within normal limits.
== END 2017-07-07 04:11 | disposition left against medical advice (07) ==
LOC: ED 22:25
DX: R51 Headache (principal); Z94.4 Liver transplant status; Z88.6 Allergy status to analgesic agent; Z91.018 Allergy to other foods; W22.03XA Walked into furniture, initial encounter; Y93.89 Activity, other specified; Y92.89 Other specified places as the place of occurrence of the external cause; Y99.8 Other external cause status
CPT/HCPCS: 70450; 96372; 99283; J1885; Q0162

== ENCOUNTER 2018-07-21 13:32 | Emergency (ER) | payer MEDICAID ==
[2018-07-21 14:13] VITALS: BP 125/104
--- NOTE | 2018-07-21 16:54 | Emergency Department Report ---
Chief Complaint: Upper Respiratory Infection Stated Complaint: BAD COUGH/FEVER Time Seen by Provider: 07/21/18 16:53 - HPI History of Present Illness: HX OF LIVER TRANSPLANT WITH FATIGUE AND URTI NO IMMUNE SUPRESSION LABS AND REEVAL - Exam Vital Signs: Vital Signs 07/21/18 14:10 Temperature 98.7 F Pulse Rate 82 Respiratory 16 Rate Blood Pressure 125/104 O2 Sat by Pulse 99 Oximetry MSE screening note: Focused history and physical exam performed. Due to findings the following was ordered: ED Disposition for MSE Condition: Stable Referrals: BASIA LIU MD [Primary Care Provider] - 3-5 Days
[2018-07-21 17:16] LABS: Hematocrit 34.9 % (30.3-42.9); Hemoglobin 11.4 gm/dl (10.1-14.3); Mean Corpuscular HGB Conc 33 % (30-34); Mean Corpuscular Volume 81 fl (79-97); Platelet Count 161 K/mm3 (140-440); Red Blood Count 4.31 M/mm3 (3.65-5.03); Red Cell Distribution Width 15.8 % (13.2-15.2)
--- NOTE | 2018-07-21 17:42 | Emergency Department Report ---
ED General Adult HPI - General Chief complaint: Upper Respiratory Infection Stated complaint: BAD COUGH/FEVER Time Seen by Provider: 07/21/18 17:23 Source: patient Mode of arrival: Ambulatory Limitations: No Limitations - History of Present Illness Initial comments: 37-year-old Citizen Of [place] female with past medical history of cough, congestion, coryza, nasal pressure and body aches for the last 2-3 days. Return to emergency department complaining of a no improvement in her symptomatology. States while she was only there with a 1-year-old. She may have passed out at that she was gone. We and lightheaded with the previously mentioned symptoms. Reports no chest pain or palpitations. Reports no hemoptysis or hematemesis. No hematochezia. States that she's been tolerating of her meals but has had a poor appetite over the last few days as well. There is no dysuria and she denies any known trauma. The came home from work around 11:15 11:30 AM today he found her laying down on the floor. She does not know how long she was the -: Sudden (dizzness), week(s) (1 headache) Location: head Radiation: non-radiation Quality: aching Consistency: constant Improves with: none Worsens with: none Associated Symptoms: syncope, other (cephalgia for 1 week. c/o of dizziness and syncope for unknown duration. no fever or chills. positive cough). denies: confusion, diaphoresis, weakness - Related Data Previous Rx's Medication Instructions Recorded Last Taken Type Vit Calc,Iron,Folic 1 each PO DAILY #30 tablet 09/28/16 2 Days Ago Rx [ Vitamins] ~04/30/17 Docusate Sodium [Colace] 100 mg PO BID PRN #60 capsule 05/02/17 Unknown Rx Ferrous Sulfate [Feosol 325 MG tab] 325 mg PO QDAY #30 tablet 05/02/17 Unknown Rx Ibuprofen [Motrin 800 MG tab] 800 mg PO Q8HR PRN #30 tablet 05/02/17 Unknown Rx oxyCODONE /ACETAMINOPHEN [Percocet 1 tab PO Q4HR #30 tab 05/02/17 Unknown Rx 5/325] Benzonatate [Tessalon Perles] 100 mg PO Q8HR #20 capsule 07/21/18 Unknown Rx Allergies Allergy/AdvReac Type Severity Reaction Status Date / Time aspirin Allergy Angioedema Verified 09/13/16 17:54 orange juice Allergy Angioedema Verified 09/13/16 17:54 ED Review of Systems ROS: Stated complaint: BAD COUGH/FEVER Other details as noted in HPI Constitutional: denies: chills, fever Eyes: denies: eye pain, eye discharge, vision change ENT: denies: ear pain, throat pain Respiratory: denies: cough, shortness of breath, wheezing Cardiovascular: denies: chest pain, palpitations Endocrine: no symptoms reported Gastrointestinal: denies: abdominal pain, nausea, diarrhea Genitourinary: denies: urgency, dysuria, discharge Musculoskeletal: denies: back pain, joint swelling, arthralgia Skin: denies: rash, lesions Neurological: headache, vertigo. denies: weakness, paresthesias Psychiatric: denies: anxiety, depression Hematological/Lymphatic: denies: easy bleeding, easy bruising ED Past Medical Hx - Past Medical History Previous Medical History?: No Hx Hypertension: No Hx Congestive Heart Failure: No Hx Diabetes: No Hx Deep Vein Thrombosis: No Hx Liver Disease: Yes (liver transplant x 3 1982) Hx Renal Disease: No Hx Sickle Cell Disease: No Hx Seizures: No Hx Asthma: No Hx COPD: No Hx HIV: No Additional medical history: liver transplant 1982 - Surgical History Past Surgical History?: Yes Additional Surgical History: csection. liver transplant - Social History Smoking Status: Never Smoker Substance Use Type: None - Medications Home Medications: Home Medications Medication Instructions Recorded Confirmed Last Taken Type Vit Calc,Iron,Folic 1 each PO DAILY #30 tablet 09/28/16 05/02/17 2 Days Ago Rx [ Vitamins] ~04/30/17 Docusate Sodium [Colace] 100 mg PO BID PRN #60 capsule 05/02/17 Unknown Rx Ferrous Sulfate [Feosol 325 MG tab] 325 mg PO QDAY #30 tablet 05/02/17 Unknown Rx Ibuprofen [Motrin 800 MG tab] 800 mg PO Q8HR PRN #30 tablet 05/02/17 Unknown Rx oxyCODONE /ACETAMINOPHEN [Percocet 1 tab PO Q4HR #30 tab 05/02/17 Unknown Rx 5/325] Benzonatate [Tessalon Perles] 100 mg PO Q8HR #20 capsule 07/21/18 Unknown Rx ED Physical Exam - General Limitations: No Limitations General appearance: alert, in no apparent distress - Head Head exam: Present: atraumatic, normocephalic - Eye Eye exam: Present: normal appearance, PERRL, EOMI. Absent: nystagmus, periorbital swelling, periorbital tenderness Pupils: Present: normal accommodation, other - ENT ENT exam: Present: normal exam, mucous membranes moist, TM's normal bilaterally, normal external ear exam. Absent: mucous membranes dry - Neck Neck exam: Present: normal inspection, full ROM. Absent: tenderness, meningismus, lymphadenopathy - Respiratory Respiratory exam: Present: normal lung sounds bilaterally. Absent: respiratory distress, rhonchi, stridor, chest wall tenderness, accessory muscle use, de creased breath sounds - Cardiovascular Cardiovascular Exam: Present: regular rate, normal rhythm. Absent: systolic murmur, diastolic murmur, rubs, gallop - GI/Abdominal GI/Abdominal exam: Present: soft, normal bowel sounds. Absent: tenderness, guarding, rebound, hyperactive bowel sounds, hypoactive bowel sounds, organo megaly, mass, bruit - Extremities Exam Extremities exam: Present: normal inspection, full ROM, normal capillary refill - Back Exam Back exam: Present: normal inspection, full ROM. Absent: muscle spasm, paraspinal tenderness, vertebral tenderness - Neurological Exam Neurological exam: Present: alert, oriented X3, CN II-XII intact, normal gait, other (neg rhomberg. ). Absent: motor sensory deficit - Psychiatric Psychiatric exam: Present: normal affect, normal mood - Skin Skin exam: Present: warm, dry, intact, normal color. Absent: rash ED Course Vital Signs 07/21/18 14:10 Temperature 98.7 F Pulse Rate 82 Respiratory 16 Rate Blood Pressure 125/104 O2 Sat by Pulse 99 Oximetry ED Medical Decision Making - Lab Data Result diagrams: 07/21/18 17:07 07/21/18 17:07 Critical care attestation.: If time is entered above; I have spent that time in minutes in the direct care of this critically ill patient, excluding procedure time. ED Disposition Clinical Impression: URI (upper respiratory infection), Dizziness Disposition: DC-01 TO HOME OR SELFCARE Is pt being admited?: No Does the pt Need Aspirin: No Condition: Stable Instructions: Viral Syndrome (ED), Upper Respiratory Infection (ED), Dizziness (ED) Referrals: BASIA LIU MD [Primary Care Provider] - 3-5 Days
[2018-07-21 18:38] LABS: Alanine Aminotransferase 29 units/L (7-56); Albumin 3.7 g/dL (3.9-5); BUN/Creatinine Ratio 13; Blood Urea Nitrogen 8 mg/dL (7-17); Calcium 8.6 mg/dL (8.4-10.2); Hemolysis Index 4
[2018-07-21 18:45] LABS: HCG Qualitative,Urine Negative (Negative)
[2018-07-21 18:47] LABS: Bilirubin,Urine NEG (Negative); Blood,Urine NEG (Negative); Color,Urine Yellow (Yellow); Mucus,Urine FEW /HPF; Protein,Urine <15 mg/dL mg/dL (Negative); WBC,Urine < 1.0 /HPF (0.0-6.0)
--- NOTE | 2018-07-21 20:28 | Cat Scan Report ---
FINAL REPORT PROCEDURE: CT head without contrast. TECHNIQUE: Computerized tomography of the head was performed without contrast material. HISTORY: Headache. COMPARISON: CT head 07/07/2017. FINDINGS: The ventricles are normal in size. The duke matter and white matter appear normal. There are no mass lesions. There is no intracranial hemorrhage. The calvarium appears intact. The mastoid air cells and visualized paranasal sinuses are well aerated. IMPRESSION: Normal study.
--- NOTE | 2018-07-21 20:33 | XRay Report ---
FINAL REPORT PROCEDURE: Chest. TECHNIQUE: PA and lateral views. HISTORY: Dry cough and dizziness for 2-3 days. COMPARISON: No prior studies are available for comparison. FINDINGS: The heart size is mildly enlarged. The lungs are clear and well expanded. There are no pleural effusi ons. The soft tissues and regional skeleton are unremarkable. IMPRESSION: Mild cardiomegaly.
== END 2018-07-21 21:40 | disposition home or self-care (01) ==
LOC: ED 13:32
DX: J06.9 Acute upper respiratory infection, unspecified (principal); R42 Dizziness and giddiness; R55 Syncope and collapse; Z91.018 Allergy to other foods; Z88.6 Allergy status to analgesic agent
CPT/HCPCS: 36415; 70450; 71046; 80053; 81001; 81025; 85027; 99284

== ENCOUNTER 2021-04-24 10:39 | Outpatient (CLI) | payer MEDICAID ==
--- NOTE | 2021-04-24 15:33 | Mammography Report ---
DIGITAL SCREENING MAMMOGRAM WITH CAD, 04/24/2021 CLINICAL INFORMATION / INDICATION: Routine screening mammography. SCREENING MAMMOGRAM TECHNIQUE: Digital bilateral 2D mammography was obtained in the craniocaudal and mediolateral obliqu e projections. This examination was interpreted with the benefit of Computer-Aided Detection analysis . COMPARISON: Baseline. FINDINGS: Breast Density: The breasts are heterogeneously dense, which may obscure small masses. No dominant mass, suspicious calcifications, or architectural distortion in either breast. IMPRESSION: No mammographic evidence of malignancy. Follow up recommendation: Routine yearly BI-RADS Category 1: Negative. A "normal" or negative report should not discourage follow up or biopsy of a clinically significant f inding. A written summary of these findings will be mailed to the patient. The patient will be entered into a mammography reporting system which will generate a reminder letter for the patient's next appointmen t at the appropriate interval. The [employer] recommends yearly mammograms starting at age 40 and continuing as l lex as a woman is in good health. Breast MRI is recommended for women with an approximate 20-25% or greater lifetime risk of breast cancer, including women with a strong family history of breast or ova ranjit cancer or who have been treated for Hodgkin's disease. Signer Name: Josep Rangel MD Signed: 04/24/2021 3:28 PM Workstation Name: [id number]
== END 2021-04-24 10:40 | disposition home or self-care (01) ==
LOC: MAMMO 10:39
PROVIDERS: ATTEND Advanced Practice Midwife
DX: Z12.31 Encounter for screening mammogram for malignant neoplasm of breast (principal)
CPT/HCPCS: 77067